=== PATIENT | female | born 1965 | race African-American/Black ===

== ENCOUNTER 2022-09-06 00:14 | Inpatient (IN) | payer MEDICAID ==
[~2022-09-06] VITALS: Ht 170.2 cm; Wt 70.3 kg
[2022-09-06] MEDS ORDERED: FUROSEMIDE 40MG/4ML VIAL IV ONE (00:30)
[2022-09-06 03:18] LABS: *AMPHETAMINES SCREEN URINE NEGATIVE (NEGATIVE); *BARBITURATES SCREEN URINE NEGATIVE (NEGATIVE); *BENZODIAZEPINES SCREEN URINE NEGATIVE (NEGATIVE); *COCAINE SCREEN URINE NEGATIVE (NEGATIVE); CANNABINOID URINE SCREEN NEGATIVE (NEGATIVE); METHADONE URINE SCREEN NEGATIVE (NEGATIVE); OPIATES URINE SCREEN NEGATIVE (NEGATIVE); PHENCYCLIDINE URINE SCREEN NEGATIVE (NEGATIVE)
[2022-09-06 03:55] LABS: BASOPHILS % 0.4 % (0.0-2.0); EOSINOPHILS % 0.6 % (0.0-5.0); HEMATOCRIT. 40.2 % (36.0-48.0); LYMPHOCYTES % 24.6 % (20.0-50.0); MEAN CORPUSCULAR HEMOGLOBIN 28.9 pg (28.0-32.0); MEAN CORPUSCULAR VOLUME 89.3 fL (81.0-99.0); MEAN PLATELET VOLUME 9.9 fl (7.4-10.4); MONOCYTES % 5.9 % (2.0-8.0); NEUTROPHILS % 68.5 % (40.0-76.0); PLATELET 202 x1000/uL (130-400); RED CELL DISTRIBUTION WIDTH 14.1 % (11.6-14.6)
[2022-09-06 04:38] LABS: CHLORIDE 107 mEq/L (98-107)
[2022-09-06 04:46] LABS: ETHANOL BLOOD < 10 mg/dL
[2022-09-06] MEDS ORDERED: ASPIRIN 325MG EC TABLET PO NR (05:00)
[2022-09-06 14:30] VITALS: BP 140/85
[2022-09-06] MEDS ORDERED: ONDANSETRON HCL 4MG/2ML INJ IV PRN (15:30)
[2022-09-06] MEDS ORDERED: POTASSIUM CHLORIDE 20MEQ TABLET SR PO NR (15:30)
[2022-09-06] MEDS ORDERED: ACETAMINOPHEN 325MG TABLET PO PRN (15:30)
[2022-09-06] MEDS ORDERED: CEFTRIAXONE 1 G PREMIX 50 ML IV SCH (15:30)
[2022-09-06] MEDS: FUROSEMIDE 40MG/4ML VIAL IVP SCH (15:33)
[2022-09-06 16:00] VITALS: BP 148/85
[2022-09-06] MEDS: CEFTRIAXONE 1,000 MG in DEXTROSE 5% WATER 50 ML IV SCH (16:30)
[2022-09-06 20:00] VITALS: BP 109/78
[2022-09-06] MEDS: IPRATROPIUM/ALBUTEROL 0.5-3(2.5)MG/3ML NEB HHN SCH (21:01)
[2022-09-06] MEDS ORDERED: LORA10TA7 PO (21:24)
[2022-09-06] MEDS ORDERED: SPIR25TA6 MT (21:24)
[2022-09-06] MEDS ORDERED: FURO40TA5 MT (21:24)
[2022-09-06] MEDS ORDERED: ASPI-1497 MT (21:24)
[2022-09-06] MEDS ORDERED: PANT40TA51 MT (21:24)
[2022-09-06] MEDS ORDERED: METO-396 PO (21:24)
[2022-09-06] MEDS ORDERED: DIPH25CA83 PO (21:24)
[2022-09-07] VITALS: BP 110/76
[2022-09-07 04:00] VITALS: BP 109/74
[2022-09-07 08:00] VITALS: BP 104/58
[2022-09-07] MEDS: IPRATROPIUM/ALBUTEROL 0.5-3(2.5)MG/3ML NEB HHN SCH ×4 (08:25→21:48)
[2022-09-07] MEDS: ASPIRIN 81MG EC TABLET PO SCH (09:13)
[2022-09-07] MEDS: AZITHROMYCIN 500 MG TABLET PO SCH (09:13)
[2022-09-07] MEDS: PANTOPRAZOLE 40MG DR TABLET PO SCH (09:13)
[2022-09-07] MEDS: FUROSEMIDE 40MG/4ML VIAL IVP SCH (09:13)
[2022-09-07] MEDS: SPIRONOLACTONE 25MG TABLET PO SCH (09:13)
[2022-09-07] MEDS ORDERED: ZOLPIDEM TARTRATE 5MG TABLET PO PRN (11:15)
[2022-09-07 12:00] VITALS: BP 111/67
[2022-09-07 16:00] VITALS: BP 115/69
[2022-09-07] MEDS: CEFTRIAXONE 1,000 MG in DEXTROSE 5% WATER 50 ML IV SCH (16:30)
[2022-09-07 20:00] VITALS: BP 93/52
[2022-09-07] MEDS: METOPROLOL TARTRATE 25MG TABLET PO SCH (21:00)
[2022-09-08] VITALS: BP 99/65
[2022-09-08] MEDS: IPRATROPIUM/ALBUTEROL 0.5-3(2.5)MG/3ML NEB HHN SCH ×2 (01:33→08:30)
[2022-09-08 04:00] VITALS: BP 103/64
[2022-09-08 04:28] VITALS: BP 103/64
[2022-09-08 08:00] VITALS: BP_SYST 108; BP_SYST 99; BP_DIAS 61; BP_DIAS 73
[2022-09-08] MEDS: FUROSEMIDE 40MG/4ML VIAL IVP SCH (09:00)
[2022-09-08] MEDS ORDERED: FLUOXETINE HCL 20MG CAPSULE PO SCH (09:00)
[2022-09-08] MEDS: METOPROLOL TARTRATE 25MG TABLET PO SCH (09:00)
[2022-09-08] MEDS: AZITHROMYCIN 500 MG TABLET PO SCH (09:11)
[2022-09-08] MEDS: PANTOPRAZOLE 40MG DR TABLET PO SCH (09:11)
[2022-09-08] MEDS: SPIRONOLACTONE 25MG TABLET PO SCH (09:11)
[2022-09-08] MEDS: ASPIRIN 81MG EC TABLET PO SCH (09:11)
[2022-09-08 12:00] VITALS: BP 110/69
== END 2022-09-08 17:00 | disposition home or self-care (01) | DRG 139 ==
LOC: ER 00:14 → 6WST 06:31 → EDBEDREQ 06:33 → EDBEDREQTM 06:33 → ENRESERV 12:30
PROVIDERS: ADMIT Internal Medicine; ATTEND Internal Medicine
DX: J18.9 Pneumonia, unspecified organism (principal); J96.01 Acute respiratory failure with hypoxia; I50.23 Acute on chronic systolic (congestive) heart failure; I42.9 Cardiomyopathy, unspecified; J44.9 Chronic obstructive pulmonary disease, unspecified; I11.0 Hypertensive heart disease with heart failure; Z20.822 Contact with and (suspected) exposure to COVID-19; E87.6 Hypokalemia; F41.9 Anxiety disorder, unspecified; E87.70 Fluid overload, unspecified; F33.9 Major depressive disorder, recurrent, unspecified; G47.00 Insomnia, unspecified; Z87.891 Personal history of nicotine dependence; Z82.49 Family history of ischemic heart disease and other diseases of the circulatory system; Z83.3 Family history of diabetes mellitus; Z63.4 Disappearance and death of family member
CPT/HCPCS: 36415; 71045; 80053; 80305; 80320; 83605; 83880; 84484; 85025; 87426; 93005; 93306; 94640; 99285; C9803; J0696; J1940; J7060; G0480